=== PATIENT | male | born 1985 | race Hispanic/Latino ===

== ENCOUNTER 2017-09-13 08:40 | Emergency (ER) | payer MEDICAID, OTHER | END 2017-09-13 10:21 | disposition home or self-care (01) | LOC: EDH 08:40 | DX: H81.399 Other peripheral vertigo, unspecified ear (principal); R03.0 Elevated blood-pressure reading, without diagnosis of hypertension; F41.9 Anxiety disorder, unspecified; Z72.0 Tobacco use | CPT/HCPCS: 99282 ==

== ENCOUNTER 2017-10-27 19:32 | Emergency (ER) | payer SELFPAY | END 2017-10-27 20:41 | disposition home or self-care (01) | LOC: EDH 19:32 | DX: S40.862A Insect bite (nonvenomous) of left upper arm, initial encounter (principal); S40.861A Insect bite (nonvenomous) of right upper arm, initial encounter; Z72.0 Tobacco use; W57.XXXA Bitten or stung by nonvenomous insect and other nonvenomous arthropods, initial encounter; Y93.89 Activity, other specified; Y92.89 Other specified places as the place of occurrence of the external cause; Y99.8 Other external cause status | CPT/HCPCS: 99282 ==